=== PATIENT | female | born 1990 | race Caucasian/White ===

== ENCOUNTER 2017-12-30 23:29 | Emergency (ER) | payer OTHER ==
[2017-12-30 23:37] VITALS: BP 133/87; PULSE 83; RESP 16; TEMP 98.2
[2017-12-31] MEDS ORDERED: METOCLOPRAMIDE 5 MG/ML 2 ML VIAL IVP STA (00:03)
[2017-12-31] MEDS ORDERED: SODIUM CHLORIDE 0.9% 1,000 ML IV STA (00:03)
[2017-12-31] MEDS ORDERED: diphenhydrAMINE 50 MG/ML 1 ML VIAL IVP STA (00:03)
--- NOTE | 2017-12-31 00:08 | ED ---
Nausea/Vomiting/Diarrhea HPI - General Chief complaint: Nausea/Vomiting/Diarrhea Stated complaint: Vomiting, hands/feet numbness Time Seen by Provider: 12/30/17 23:53 Source: patient, RN notes reviewed Mode of arrival: ambulatory Limitations: no limitations - History of Present Illness Initial comments: This is a 27-year-old female presents to the emergency department with chief complaint of vomiting. Patient states that she has been unable to keep anything down since last night. She states that she has not eaten anything today. She states that she is currently 2 months but does not plan on keeping the baby. She states that she has an appointment with an clinic on Monday. She denies any abdominal pain or vaginal bleeding. She denies fevers or chills, diarrhea or constipation. Patient states that throughout the day today she had intermittent episodes of feeling like her hands and feet went numb. Patient denies any significant past medical history. - Related Data Home Medications Medication Instructions Recorded Confirmed No Known Home Medications 06/22/15 02/14/16 Allergies Allergy/AdvReac Type Severity Reaction Status Date / Time No Known Allergies Allergy Verified 12/30/17 23:38 Review of Systems ROS Statement: Those systems with pertinent positive or pertinent negative responses have been documented in the HPI. ROS Other: All systems not noted in ROS Statement are negative. Past Medical History Additional Past Medical History / Comment(s): ovarian cysts History of Any Multi-Drug Resistant Organisms: None Reported Past Surgical History: No Surgical Hx Reported Additional Past Surgical History / Comment(s): D & C Additional Past Anesthesia/Blood Transfusion Reaction / Comment(s): NEVER HAD A BLOOD TRANSFUSION Past Psychological History: No Psychological Hx Reported Smoking Status: Never smoker Past Alcohol Use History: Occasional Past Drug Use History: None Reported - Past Family History Father History Unknown: Yes Family Medical History: Coronary Artery Disease (CAD), Hypertension, Myocardial Infarction ([place]) Mother History Unknown: Yes Family Medical History: Liver Disease Additional Family Medical History / Comment(s): 'liver problems from alcohol" General Exam - General Exam Comments Initial Comments: General: Awake and alert, well-developed; in no apparent distress. HEENT: Head atraumatic, normocephalic. Pupils are equal, round and reactive to light. Extraocular movements intact. Oropharynx moist without erythema or exudate. Neck: Supple. Normal ROM. Cardiovascular: Regular rate and rhythm. No murmurs, rubs or gallops. Chest symmetrical. Respiratory: Lungs clear to auscultation bilaterally. No wheezes, rales or rhonchi. Normal respiratory effort with no use of accessory muscles. Abdomen: Soft, non-tender, non-distended. No rigidity, rebound or guarding. Normal bowel sounds in all 4 quadrants. Musculoskeletal: Normal ROM, no tenderness bilateral upper and lower extremities. Ambulating normally. Skin: [place], warm and dry without rashes or lesions. Neurological: Alert and oriented x3. CN II-XII grossly intact. Speech is fluent and answers are appropriate. No focal neuro deficits. Psychiatric: Normal mood and affect. No overt signs of depression or anxiety noted. Limitations: no limitations Course Vital Signs 12/30/17 23:35 Temperature 98.2 F Pulse Rate 83 Respiratory 16 Rate Blood Pressure 133/87 O2 Sat by Pulse 96 Oximetry Medical Decision Making - Medical Decision Making This is a 27-year-old female who presents to the emergency department with chief complaint of vomiting. Patient states that she is 2 months . Denies any abdominal pain or vaginal bleeding. He states that she has been vomiting since yesterday. States that she does plan on getting an and has an of appointment scheduled for Monday. Patient denies any fevers or chills. CBC and CMP were unremarkable. Patient was unable to provide a urine sample. After receiving a fluid bolus and antiemetics, patient states that she is feeling better. She states that she wants to be discharged home. Vital signs are stable and patient is in no acute distress. She will be discharged home at this time. All questions answered. - Lab Data Result diagrams: 12/31/17 00:18 12/31/17 00:18 Lab Results 12/31/17 12/31/17 Range/Units 00:18 00:18 WBC 6.2 (3.8-10.6) k/uL RBC 4.61 (3.80-5.40) m/uL Hgb 15.0 (11.4-16.0) gm/dL Hct 43.3 (34.0-46.0) % MCV 93.9 (80.0-100.0) fL MCH 32.6 (25.0-35.0) pg MCHC 34.7 (31.0-37.0) g/dL RDW 14.6 (11.5-15.5) % Plt Count 266 (150-450) k/uL Neutrophils % 79 % Lymphocytes % 14 % Monocytes % 5 % Eosinophils % 1 % Basophils % 1 % Neutrophils # 4.9 (1.3-7.7) k/uL Lymphocytes # 0.9 L (1.0-4.8) k/uL Monocytes # 0.3 (0-1.0) k/uL Eosinophils # 0.0 (0-0.7) k/uL Basophils # 0.0 (0-0.2) k/uL Sodium 138 (137-145) mmol/L Potassium 3.8 (3.5-5.1) mmol/L Chloride 96 L (98-107) mmol/L Carbon Dioxide 25 (22-30) mmol/L Anion Gap 17 mmol/L BUN 11 (7-17) mg/dL Creatinine 0.50 L (0.52-1.04) mg/dL Est GFR (CKD-EPI)AfAm >90 (>60 ml/min/1.73 sqM) Est GFR (CKD-EPI)NonAf >90 (>60 ml/min/1.73 sqM) Glucose 81 (74-99) mg/dL Calcium 9.7 (8.4-10.2) mg/dL Total Bilirubin 0.9 (0.2-1.3) mg/dL AST 56 H (14-36) U/L ALT 52 (9-52) U/L Alkaline Phosphatase 78 (38-126) U/L Total Protein 7.8 (6.3-8.2) g/dL Albumin 4.8 (3.5-5.0) g/dL Disposition Clinical Impression: Nausea and vomiting during Disposition: HOME SELF-CARE Condition: Good Instructions: Nausea and Vomiting in (ED) Additional Instructions: Please follow up with primary care provider within 1-2 days. Return to emergency department if symptoms should worsen or any concerns arise. Is patient prescribed a controlled substance at d/c from ED?: No Referrals: None,Stated [Primary Care Provider] - 1-2 days Time of Disposition: 01:36
[2017-12-31 00:28] LABS: Basophils % (A) 1 %; Eosinophils % (A) 1 %; HCT 43.3 % (34.0-46.0); Lymphocytes # (A) 0.9 k/uL (1.0-4.8); Lymphocytes % (A) 14 %; MCH 32.6 pg (25.0-35.0); MCHC 34.7 g/dL (31.0-37.0); MCV 93.9 fL (80.0-100.0); Monocytes # (A) 0.3 k/uL (0-1.0); Monocytes % (A) 5 %; Neutrophils # (A) 4.9 k/uL (1.3-7.7); Neutrophils % (A) 79 %; Platelet Count 266 k/uL (150-450); RBC 4.61 m/uL (3.80-5.40); RDW 14.6 % (11.5-15.5); WBC 6.2 k/uL (3.8-10.6)
[2017-12-31 00:38] LABS: ALT 52 U/L (9-52); AST 56 U/L (14-36); Albumin 4.8 g/dL (3.5-5.0); Alkaline Phosphatase 78 U/L (38-126); Anion Gap 17 mmol/L; Blood Urea Nitrogen 11 mg/dL (7-17); Calcium 9.7 mg/dL (8.4-10.2); Carbon Dioxide 25 mmol/L (22-30); Chloride 96 mmol/L (98-107); Glucose 81 mg/dL (74-99); Potassium 3.8 mmol/L (3.5-5.1); Sodium 138 mmol/L (137-145); Total Bilirubin 0.9 mg/dL (0.2-1.3); Total Protein 7.8 g/dL (6.3-8.2)
== END 2017-12-31 02:23 | disposition home or self-care (01) ==
LOC: EC 23:29
DX: O21.9 Vomiting of pregnancy, unspecified (principal); Z3A.08 8 weeks gestation of pregnancy
CPT/HCPCS: 36415; 80053; 85025; 99284; 96374; 96375; 96361; J1200; J2765

== ENCOUNTER 2018-05-14 10:38 | Inpatient (IN) | payer OTHER ==
[2018-05-14] MEDS ORDERED: SODIUM CHLORIDE 0.9% 2,000 ML IV STA (11:32)
[2018-05-14] MEDS ORDERED: KETOROLAC 30 MG/ML 1 ML VIAL IVP STA (11:32)
[2018-05-14] MEDS ORDERED: ONDANSETRON ODT 8 MG TAB.RAPDIS PO STA (11:32)
--- NOTE | 2018-05-14 11:36 | ED ---
General Adult HPI <René Payan - Last Filed: 05/14/18 15:36> - General Source: patient, RN notes reviewed Mode of arrival: ambulatory Limitations: no limitations <Chidi Pang - Last Filed: 05/14/18 15:52> - General Chief complaint: Abdominal Pain Stated complaint: back pain Time Seen by Provider: 05/14/18 11:17 - History of Present Illness Initial comments: 27-year-old female presents to the emergency department for a chief complaint of right flank pain x 3 days. Patient states she has had a kidney infection in the past and this feels similar. She denies urinary symptoms such as urinary frequency, urgency, or dysuria. However she does admit to suprapubic pain and pressure. Patient denies a history of kidney stones. Patient denies noticing any blood in the urine. Patient states she felt febrile yesterday but did not check her temperature. Patient admits to nausea and vomiting. She states she has been vomiting multiple times per day. She states she has not been able to keep down much fluid and is urinating less frequently than normal. Patient has no other complaints at this time including shortness of breath, chest pain, headache, or visual changes. (Chidi Pang) - Related Data Home Medications Medication Instructions Recorded Confirmed Naproxen Sodium [Aleve] 660 mg PO DAILY PRN 05/14/18 05/14/18 Norgestimate-Ethinyl Estradiol 1 tab PO DAILY 05/14/18 05/14/18 [Sprintec 28 Day Tablet] Previous Rx's Medication Instructions Recorded Cephalexin [Keflex] 500 mg PO Q6H 14 Days cap 05/14/18 Ondansetron [Zofran ODT] 4 mg PO Q8HR PRN #15 tab 05/14/18 Allergies Allergy/AdvReac Type Severity Reaction Status Date / Time No Known Allergies Allergy Verified 05/14/18 11:16 Review of Systems ROS Other: All systems not noted in ROS Statement are negative. <René Payan - Last Filed: 05/14/18 15:36> ROS Other: All systems not noted in ROS Statement are negative. <Chidi Pang - Last Filed: 05/14/18 15:52> ROS Statement: Those systems with pertinent positive or pertinent negative responses have been documented in the HPI. Past Medical History Additional Past Medical History / Comment(s): ovarian cysts, kidney infection, uti History of Any Multi-Drug Resistant Organisms: None Reported Past Surgical History: No Surgical Hx Reported Additional Past Surgical History / Comment(s): D & C Additional Past Anesthesia/Blood Transfusion Reaction / Comment(s): NEVER HAD A BLOOD TRANSFUSION Past Psychological History: No Psychological Hx Reported Smoking Status: Never smoker Past Alcohol Use History: Occasional Past Drug Use History: None Reported - Past Family History Father History Unknown: Yes Family Medical History: Coronary Artery Disease (CAD), Hypertension, Myocardial Infarction ([place]) Mother History Unknown: Yes Family Medical History: Liver Disease Additional Family Medical History / Comment(s): 'liver problems from alcohol" <Chidi Pang - Last Filed: 05/14/18 15:52> General Exam Limitations: no limitations General appearance: alert, in no apparent distress Head exam: Present: atraumatic, normocephalic, normal inspection Eye exam: Present: normal appearance, PERRL, EOMI. Absent: scleral icterus, conjunctival injection, periorbital swelling ENT exam: Present: normal exam, mucous membranes moist Neck exam: Present: normal inspection, full ROM. Absent: tenderness, meningismus, lymphadenopathy Respiratory exam: Present: normal lung sounds bilaterally. Absent: respiratory distress, wheezes, rales, rhonchi, stridor Cardiovascular Exam: Present: regular rate, normal rhythm, normal heart sounds. Absent: systolic murmur, diastolic murmur, rubs, gallop, clicks GI/Abdominal exam: Present: soft, tenderness (Suprapubic tenderness), normal bowel sounds. Absent: distended, guarding, rebound, rigid Back exam: Present: CVA tenderness (R), CVA tenderness (L) Neurological exam: Present: alert, oriented X3, CN II-XII intact Psychiatric exam: Present: normal affect, normal mood <Chidi Pang - Last Filed: 05/14/18 15:52> Course <René Payan - Last Filed: 05/14/18 15:36> <Chidi Pang - Last Filed: 05/14/18 15:52> Vital Signs 05/14/18 05/14/18 10:53 15:26 Temperature 98.5 F 100.9 F H Pulse Rate 112 H 90 Respiratory 16 22 Rate Blood Pressure 137/90 150/96 O2 Sat by Pulse 99 100 Oximetry - Reevaluation(s) Reevaluation #1: 05/14/18 15:36 Patient now meets for sepsis criteria diagnosed at 1536. Blood cultures and lactic acid and IV antibiotics have all been ordered. Case was discussed in detail with Dr. Fernandes, who will admit for hospital call. Patient reevaluated and updated by myself, Dr. Payan. I did agree with PA Findings including DIAGNOSTIC INTERPRETATIONS AND TREATMENT PLAN. (René Payan) Medical Decision Making - Lab Data Result diagrams: 05/14/18 12:02 05/14/18 12:02 <René Payan - Last Filed: 05/14/18 15:36> - Lab Data Result diagrams: 05/14/18 12:02 05/14/18 12:02 <Chidi Pang - Last Filed: 05/14/18 15:52> - Medical Decision Making 27-year-old female presents for flank pain, vomiting, and suprapubic pain. On evaluation patient does have bilateral tenderness to both flanks. Mild suprapubic tenderness. She is well appearing on exam. She is afebrile on presentation. CBC is within normal limits and patient does not have a white count. CMP is unremarkable. Patient does have a plasma lactic acid of 2.6. Urine shows urinary tract infection, negative hCG. Patient was given Zofran and Toradol was feeling much better, ready for discharge. However on reevaluation at time of discharge patient is now febrile and is complaining of worsening pain. At this time I recommend inpatient treatment for IV antibiotics and hydration and patient agrees. (Chidi Pang) - Lab Data Lab Results 05/14/18 05/14/18 05/14/18 Range/Units 12:02 12:02 12:02 WBC 7.8 (3.8-10.6) k/uL RBC 4.56 (3.80-5.40) m/uL Hgb 15.2 (11.4-16.0) gm/dL Hct 43.9 (34.0-46.0) % MCV 96.3 (80.0-100.0) fL MCH 33.3 (25.0-35.0) pg MCHC 34.6 (31.0-37.0) g/dL RDW 13.2 (11.5-15.5) % Plt Count 147 L (150-450) k/uL Neutrophils % 87 % Lymphocytes % 6 % Monocytes % 4 % Eosinophils % 1 % Basophils % 0 % Neutrophils # 6.8 (1.3-7.7) k/uL Lymphocytes # 0.5 L (1.0-4.8) k/uL Monocytes # 0.3 (0-1.0) k/uL Eosinophils # 0.1 (0-0.7) k/uL Basophils # 0.0 (0-0.2) k/uL Sodium 139 (137-145) mmol/L Potassium 3.7 (3.5-5.1) mmol/L Chloride 96 L (98-107) mmol/L Carbon Dioxide 26 (22-30) mmol/L Anion Gap 17 mmol/L BUN 9 (7-17) mg/dL Creatinine 0.74 (0.52-1.04) mg/dL Est GFR (CKD-EPI)AfAm >90 (>60 ml/min/1.73 sqM) Est GFR (CKD-EPI)NonAf >90 (>60 ml/min/1.73 sqM) Glucose 104 H (74-99) mg/dL Plasma Lactic Acid [place] (0.7-2.0) mmol/L Calcium 9.7 (8.4-10.2) mg/dL Total Bilirubin 1.3 (0.2-1.3) mg/dL AST 120 H (14-36) U/L ALT 141 H (9-52) U/L Alkaline Phosphatase 119 (38-126) U/L Total Protein 8.5 H (6.3-8.2) g/dL Albumin 4.8 (3.5-5.0) g/dL Amylase 43 (30-110) U/L Lipase 68 (23-300) U/L Urine Color Urine Appearance (Clear) Urine pH (5.0-8.0) Ur Specific [place] (1.001-1.035) Urine Protein (Negative) Urine Glucose (UA) (Negative) Urine Ketones (Negative) Urine Blood (Negative) Urine Nitrite (Negative) Urine Bilirubin (Negative) Urine Urobilinogen (<2.0) mg/dL Ur Leukocyte Esterase (Negative) Urine RBC (0-5) /hpf Urine WBC (0-5) /hpf Urine WBC Clumps (None) /hpf Ur Squamous Epith Cells (0-4) /hpf Urine Bacteria (None) /hpf Urine Mucus (None) /hpf Urine HCG, Qual Not Detected (Not Detectd) 05/14/18 05/14/18 Range/Units 12:02 12:02 WBC (3.8-10.6) k/uL RBC (3.80-5.40) m/uL Hgb (11.4-16.0) gm/dL Hct (34.0-46.0) % MCV (80.0-100.0) fL MCH (25.0-35.0) pg MCHC (31.0-37.0) g/dL RDW (11.5-15.5) % Plt Count (150-450) k/uL Neutrophils % % Lymphocytes % % Monocytes % % Eosinophils % % Basophils % % Neutrophils # (1.3-7.7) k/uL Lymphocytes # (1.0-4.8) k/uL Monocytes # (0-1.0) k/uL Eosinophils # (0-0.7) k/uL Basophils # (0-0.2) k/uL Sodium (137-145) mmol/L Potassium (3.5-5.1) mmol/L Chloride (98-107) mmol/L Carbon Dioxide (22-30) mmol/L Anion Gap mmol/L BUN (7-17) mg/dL Creatinine (0.52-1.04) mg/dL Est GFR (CKD-EPI)AfAm (>60 ml/min/1.73 sqM) Est GFR (CKD-EPI)NonAf (>60 ml/min/1.73 sqM) Glucose (74-99) mg/dL Plasma Lactic Acid [place] 2.6 H* (0.7-2.0) mmol/L Calcium (8.4-10.2) mg/dL Total Bilirubin (0.2-1.3) mg/dL AST (14-36) U/L ALT (9-52) U/L Alkaline Phosphatase (38-126) U/L Total Protein (6.3-8.2) g/dL Albumin (3.5-5.0) g/dL Amylase (30-110) U/L Lipase (23-300) U/L Urine Color Yellow Urine Appearance Turbid H (Clear) Urine pH 6.5 (5.0-8.0) Ur Specific [place] 1.016 (1.001-1.035) Urine Protein 2+ H (Negative) Urine Glucose (UA) Negative (Negative) Urine Ketones Negative (Negative) Urine Blood Moderate H (Negative) Urine Nitrite Negative (Negative) Urine Bilirubin Negative (Negative) Urine Urobilinogen 3.0 (<2.0) mg/dL Ur Leukocyte Esterase Large H (Negative) Urine RBC 43 H (0-5) /hpf Urine WBC >182 H (0-5) /hpf Urine WBC Clumps Many H (None) /hpf Ur Squamous Epith Cells 25 H (0-4) /hpf Urine Bacteria Many H (None) /hpf Urine Mucus Many H (None) /hpf Urine HCG, Qual (Not Detectd) Disposition <René Payan - Last Filed: 05/14/18 15:36> Is patient prescribed a controlled substance at d/c from ED?: No Time of Disposition: 14:47 <Chidi Pang - Last Filed: 05/14/18 15:52> Clinical Impression: Pyelonephritis Disposition: HOME SELF-CARE Condition: Good Instructions: Urinary Tract Infection in Women (ED), Kidney Infection (ED) Additional Instructions: Please take antibiotic as directed starting tomorrow. Please take Zofran for nausea. Please return to the emergency department if you have any worsening symptoms. Follow up with primary care or urology in 1-2 days. Prescriptions: Cephalexin [Keflex] 500 mg PO Q6H 14 Days cap Ondansetron [Zofran ODT] 4 mg PO Q8HR PRN #15 tab PRN Reason: Nausea Referrals: Bi Peguero MD [STAFF PHYSICIAN] - 1-2 days
[2018-05-14 12:23] LABS: Basophils % (A) 0 %; Eosinophils # (A) 0.1 k/uL (0-0.7); Eosinophils % (A) 1 %; HCT 43.9 % (34.0-46.0); HGB 15.2 gm/dL (11.4-16.0); Lymphocytes # (A) 0.5 k/uL (1.0-4.8); Lymphocytes % (A) 6 %; MCH 33.3 pg (25.0-35.0); MCHC 34.6 g/dL (31.0-37.0); MCV 96.3 fL (80.0-100.0); Mean Platelet Volume 6.8; Monocytes # (A) 0.3 k/uL (0-1.0); Monocytes % (A) 4 %; Neutrophils # (A) 6.8 k/uL (1.3-7.7); Neutrophils % (A) 87 %; Platelet Count 147 k/uL (150-450); RBC 4.56 m/uL (3.80-5.40); RDW 13.2 % (11.5-15.5); WBC 7.8 k/uL (3.8-10.6)
[2018-05-14 12:35] LABS: ALT 141 U/L (9-52); AST 120 U/L (14-36); Albumin 4.8 g/dL (3.5-5.0); Alkaline Phosphatase 119 U/L (38-126); Amylase 43 U/L (30-110); Anion Gap 17 mmol/L; Blood Urea Nitrogen 9 mg/dL (7-17); Calcium 9.7 mg/dL (8.4-10.2); Carbon Dioxide 26 mmol/L (22-30); Chloride 96 mmol/L (98-107); Glucose 104 mg/dL (74-99); Lipase 68 U/L (23-300); Potassium 3.7 mmol/L (3.5-5.1); Sodium 139 mmol/L (137-145); Total Bilirubin 1.3 mg/dL (0.2-1.3); Total Protein 8.5 g/dL (6.3-8.2)
[2018-05-14 12:39] LABS: Appearance,Urine Turbid (Clear); Bacteria,Urine Many /hpf; Bilirubin,Urine Negative (Negative); Blood,Urine Moderate (Negative); Color,Urine Yellow; Glucose,Urine (UA) Negative (Negative); Ketones,Urine Negative (Negative); Leukocyte Esterase,Urine Large (Negative); Mucus,Urine Many /hpf; Nitrite,Urine Negative (Negative); PH, Urine 6.5 (5.0-8.0); Protein,Urine 2+ (Negative); RBC,Urine 43 /hpf (0-5); Specific Gravity,Urine 1.016 (1.001-1.035); Squamous Epithelial Cell,Urine 25 /hpf (0-4); WBC,Urine >182 /hpf (0-5)
[2018-05-14] MEDS ORDERED: cefTRIAXone 2,000 MG in SODIUM CHLORIDE 0.9% 100 ML IVPB STA (12:55)
[2018-05-14] MEDS ORDERED: NALOXONE 0.4 MG/ML 1 ML VIAL IV PRN (15:39)
[2018-05-14] MEDS ORDERED: MORPHINE SULFATE 4 MG/ML SYRINGE IV PRN (15:39)
[2018-05-14] MEDS ORDERED: MORPHINE SULFATE 4 MG/ML SYRINGE IVP STA (15:39)
[2018-05-14] MEDS ORDERED: ONDANSETRON 4 MG/2 ML VIAL IVP PRN (15:39)
[2018-05-14] MEDS ORDERED: ACETAMINOPHEN TAB 500 MG TAB PO STA (15:58)
[2018-05-14] MEDS: SODIUM CHLORIDE 0.9% 1,000 ML IV SCH (17:21)
[2018-05-14] MEDS ORDERED: MORPHINE SULFATE 2 MG/ML SYRINGE IV PRN (18:17)
[2018-05-14] MEDS ORDERED: ACETAMINOPHEN TAB 325 MG TAB PO PRN (18:19)
--- NOTE | 2018-05-14 18:24 | P.HPIM ---
History of Present Illness H&P Date: 05/14/18 Chief Complaint: Flank pain and nausea This is a 27-year-old female with no significant past medical history presented to emergency room including patient said that she's been having back pain mostly on the right side for the past few days. Today, she became more nauseated suprapubic pain and pressure. Otherwise she denies any patient was evaluated in the emergency room was found to have a low-grade fever. The acid was elevated. Urinalysis was also positive that he was not a clean catch urine. Patient was started on IV antibiotic and was admitted to the hospital for further evaluation. She is hemodynamically stable. She is feeling better. Lactic acid level normalized after IV fluids. Review of Systems Review of system: 14 points review of systems were obtained and were negative except to what were mentioned in the HPI. Past Medical History Additional Past Medical History / Comment(s): ovarian cysts, kidney infection, uti History of Any Multi-Drug Resistant Organisms: None Reported Past Surgical History: No Surgical Hx Reported Additional Past Surgical History / Comment(s): D & C Additional Past Anesthesia/Blood Transfusion Reaction / Comment(s): NEVER HAD A BLOOD TRANSFUSION Past Psychological History: No Psychological Hx Reported Smoking Status: Never smoker Past Alcohol Use History: Occasional Past Drug Use History: None Reported - Past Family History Father History Unknown: Yes Family Medical History: Coronary Artery Disease (CAD), Hypertension, Myocardial Infarction ([place]) Mother History Unknown: Yes Family Medical History: Liver Disease Additional Family Medical History / Comment(s): 'liver problems from alcohol" Medications and Allergies Home Medications Medication Instructions Recorded Confirmed Type Cephalexin [Keflex] 500 mg PO Q6H 14 Days cap 05/14/18 Rx Naproxen Sodium [Aleve] 660 mg PO DAILY PRN 05/14/18 05/14/18 History Norgestimate-Ethinyl Estradiol 1 tab PO DAILY 05/14/18 05/14/18 History [Sprintec 28 Day Tablet] Ondansetron [Zofran ODT] 4 mg PO Q8HR PRN #15 tab 05/14/18 Rx Allergies Allergy/AdvReac Type Severity Reaction Status Date / Time No Known Allergies Allergy Verified 05/14/18 11:16 Physical Exam Vitals: Vital Signs Temp Pulse Resp BP Pulse Ox 05/14/18 15:26 100.9 F H 90 22 150/96 100 11/19/18 10:53 98.5 F 112 H 16 137/90 99 Intake and Output 05/14/18 05/14/18 05/14/18 06:59 14:59 22:59 Other: Weight 66.224 kg General: The patient is awake and alert, in no distress Eye: there is normal conjunctiva bilaterally. Neck: The neck is supple, there is no JVD. Cardiovascular: Normal S1-S2, no S3-S4, no murmurs. Respiratory: Lungs clear to auscultation bilaterally Gastrointestinal: Abdomen is soft, nontender Musculoskeletal: There is no pedal edema. Patient is having bilateral CVA tenderness worse on the right Neurological:. Speech is normal. Skin: Skin is warm and dry Results CBC & Chem 7: 05/14/18 12:02 05/14/18 12:02 Labs: Abnormal Lab Results - Last 24 Hours (Table) 05/14/18 05/14/18 05/14/18 Range/Units 12:02 12:02 12:02 Plt Count 147 L (150-450) k/uL Lymphocytes # 0.5 L (1.0-4.8) k/uL Chloride 96 L (98-107) mmol/L Glucose 104 H (74-99) mg/dL Plasma Lactic Acid [place] 2.6 H* (0.7-2.0) mmol/L AST 120 H (14-36) U/L ALT 141 H (9-52) U/L Total Protein 8.5 H (6.3-8.2) g/dL Urine Appearance (Clear) Urine Protein (Negative) Urine Blood (Negative) Ur Leukocyte Esterase (Negative) Urine RBC (0-5) /hpf Urine WBC (0-5) /hpf Urine WBC Clumps (None) /hpf Ur Squamous Epith Cells (0-4) /hpf Urine Bacteria (None) /hpf Urine Mucus (None) /hpf 05/14/18 Range/Units 12:02 Plt Count (150-450) k/uL Lymphocytes # (1.0-4.8) k/uL Chloride (98-107) mmol/L Glucose (74-99) mg/dL Plasma Lactic Acid [place] (0.7-2.0) mmol/L AST (14-36) U/L ALT (9-52) U/L Total Protein (6.3-8.2) g/dL Urine Appearance Turbid H (Clear) Urine Protein 2+ H (Negative) Urine Blood Moderate H (Negative) Ur Leukocyte Esterase Large H (Negative) Urine RBC 43 H (0-5) /hpf Urine WBC >182 H (0-5) /hpf Urine WBC Clumps Many H (None) /hpf Ur Squamous Epith Cells 25 H (0-4) /hpf Urine Bacteria Many H (None) /hpf Urine Mucus Many H (None) /hpf Microbiology - Last 24 Hours (Table) 05/14/18 12:02 Urine Culture - Preliminary Urine,Voided Assessment and Plan Assessment: 1. Suspected pyelonephritis, we'll continue broad spectrum antibiotic. I will change antibiotic to Levaquin as it has better penetration to the kidneys. Patient received IV ceftriaxone. We'll continue IV fluid hydration. Awaiting urine and blood culture. I will order repeat urinalysis as her initial urine was not clean catch. Kidney ultrasound ordered for further evaluation Continue supportive care otherwise. Repeat lab work in the morning. 2. Mild transaminitis, Etiology unclear. We will repeat in the morning. If he is not improving we'll consider acute viral hepatitis screen. 3. Sepsis with septic shock, continue with antibiotic. Lactic acid cleared with IV fluids. We will continue IV fluids for now. Awaiting blood and urine culture
[2018-05-14] MEDS ORDERED: LEVOFLOXACIN 750MG-D5W PMX 750 MG in DEXTROSE/WATER 1 150ML.BAG IVPB SCH (19:00)
[2018-05-14 19:44] VITALS: BMI 26.6
[2018-05-14] MEDS ORDERED: LORazepam 2 MG/ML INJ IV PRN ×2 (20:23)
[2018-05-14] MEDS ORDERED: THIAMINE 100 MG/ML 2 ML VIAL IM STA (20:26)
[2018-05-14] MEDS: LORazepam 2 MG/ML INJ IV PRN (22:21)
[2018-05-14 23:22] LABS: Appearance,Urine Cloudy (Clear); Bacteria,Urine Rare /hpf; Bilirubin,Urine Negative (Negative); Blood,Urine Small (Negative); Color,Urine Yellow; Glucose,Urine (UA) Negative (Negative); Ketones,Urine 2+ (Negative); Leukocyte Esterase,Urine Large (Negative); Mucus,Urine Occasional /hpf; Nitrite,Urine Negative (Negative); PH, Urine 6.5 (5.0-8.0); Protein,Urine 1+ (Negative); RBC,Urine 6 /hpf (0-5); Specific Gravity,Urine 1.013 (1.001-1.035); Squamous Epithelial Cell,Urine 4 /hpf (0-4)
[2018-05-15] MEDS: SODIUM CHLORIDE 0.9% 1,000 ML IV SCH ×2 (01:00→09:56)
[2018-05-15 08:36] LABS: Basophils % (A) 0 %; Eosinophils # (A) 0.1 k/uL (0-0.7); Eosinophils % (A) 1 %; HCT 36.8 % (34.0-46.0); HGB 12.6 gm/dL (11.4-16.0); Lymphocytes # (A) 0.9 k/uL (1.0-4.8); Lymphocytes % (A) 12 %; MCH 33.5 pg (25.0-35.0); MCHC 34.2 g/dL (31.0-37.0); MCV 97.9 fL (80.0-100.0); Mean Platelet Volume 6.8; Monocytes # (A) 0.3 k/uL (0-1.0); Monocytes % (A) 4 %; Neutrophils # (A) 5.8 k/uL (1.3-7.7); Neutrophils % (A) 81 %; Platelet Count 109 k/uL (150-450); RBC 3.76 m/uL (3.80-5.40); RDW 13.4 % (11.5-15.5); WBC 7.2 k/uL (3.8-10.6)
[2018-05-15 08:52] LABS: ALT 87 U/L (9-52); AST 67 U/L (14-36); Albumin 3.3 g/dL (3.5-5.0); Alkaline Phosphatase 79 U/L (38-126); Anion Gap 11 mmol/L; Blood Urea Nitrogen 7 mg/dL (7-17); Calcium 8.1 mg/dL (8.4-10.2); Carbon Dioxide 24 mmol/L (22-30); Chloride 101 mmol/L (98-107); Glucose 81 mg/dL (74-99); Potassium 3.4 mmol/L (3.5-5.1); Sodium 136 mmol/L (137-145); Total Bilirubin 1.1 mg/dL (0.2-1.3)
--- NOTE | 2018-05-15 09:32 | P.PN ---
Subjective Progress Note Date: 05/15/18 Principal diagnosis: Urosepsis Patient is feeling better today. No documented fever since last night. Objective - Vital Signs Vital signs: Vital Signs Temp 98.5 F 05/15/18 05:43 Pulse 96 05/15/18 05:43 Resp 16 05/15/18 05:43 BP 129/90 05/15/18 05:43 Pulse Ox 99 05/15/18 05:43 Intake & Output 05/14/18 05/15/18 05/15/18 18:59 06:59 18:59 Intake Total 1320 Balance 1320 Weight 66.224 kg 66.224 kg Intake: Intake, IV Titration 1320 Amount Sodium Chloride 0.9% 1, 1320 000 ml @ 120 mls/hr IV . Q8H20M [facility] Rx#:[id number] Other: Voiding Method Toilet Toilet - Exam General: The patient is awake and alert, in no distress Eye: there is normal conjunctiva bilaterally. Neck: The neck is supple, there is no JVD. Cardiovascular: Normal S1-S2, no S3-S4, no murmurs. Respiratory: Lungs clear to auscultation bilaterally Gastrointestinal: Abdomen is soft, nontender Musculoskeletal: There is no pedal edema. Neurological:. Speech is normal. Skin: Skin is warm and dry - Labs CBC & Chem 7: 05/15/18 07:46 05/15/18 07:46 Labs: Abnormal Lab Results - Last 24 Hours (Table) 05/14/18 05/14/18 05/14/18 Range/Units 12:02 12:02 12:02 RBC (3.80-5.40) m/uL Plt Count 147 L (150-450) k/uL Lymphocytes # 0.5 L (1.0-4.8) k/uL Sodium (137-145) mmol/L Potassium (3.5-5.1) mmol/L Chloride 96 L (98-107) mmol/L Glucose 104 H (74-99) mg/dL Plasma Lactic Acid Lyndon 2.6 H* (0.7-2.0) mmol/L Calcium (8.4-10.2) mg/dL AST 120 H (14-36) U/L ALT 141 H (9-52) U/L Total Protein 8.5 H (6.3-8.2) g/dL Albumin (3.5-5.0) g/dL Urine Appearance (Clear) Urine Protein (Negative) Urine Ketones (Negative) Urine Blood (Negative) Ur Leukocyte Esterase (Negative) Urine RBC (0-5) /hpf Urine WBC (0-5) /hpf Urine WBC Clumps (None) /hpf Ur Squamous Epith Cells (0-4) /hpf Urine Bacteria (None) /hpf Urine Mucus (None) /hpf 05/14/18 05/14/18 05/15/18 Range/Units 12:02 23:00 07:46 RBC 3.76 L (3.80-5.40) m/uL Plt Count 109 L (150-450) k/uL Lymphocytes # 0.9 L (1.0-4.8) k/uL Sodium (137-145) mmol/L Potassium (3.5-5.1) mmol/L Chloride (98-107) mmol/L Glucose (74-99) mg/dL Plasma Lactic Acid Lyndon (0.7-2.0) mmol/L Calcium (8.4-10.2) mg/dL AST (14-36) U/L ALT (9-52) U/L Total Protein (6.3-8.2) g/dL Albumin (3.5-5.0) g/dL Urine Appearance Turbid H Cloudy H (Clear) Urine Protein 2+ H 1+ H (Negative) Urine Ketones 2+ H (Negative) Urine Blood Moderate H Small H (Negative) Ur Leukocyte Esterase Large H Large H (Negative) Urine RBC 43 H 6 H (0-5) /hpf Urine WBC >182 H >182 H (0-5) /hpf Urine WBC Clumps Many H Rare H (None) /hpf Ur Squamous Epith Cells 25 H (0-4) /hpf Urine Bacteria Many H Rare H (None) /hpf Urine Mucus Many H Occasional H (None) /hpf 05/15/18 Range/Units 07:46 RBC (3.80-5.40) m/uL Plt Count (150-450) k/uL Lymphocytes # (1.0-4.8) k/uL Sodium 136 L (137-145) mmol/L Potassium 3.4 L (3.5-5.1) mmol/L Chloride (98-107) mmol/L Glucose (74-99) mg/dL Plasma Lactic Acid Lyndon (0.7-2.0) mmol/L Calcium 8.1 L (8.4-10.2) mg/dL AST 67 H (14-36) U/L ALT 87 H (9-52) U/L Total Protein 6.0 L (6.3-8.2) g/dL Albumin 3.3 L (3.5-5.0) g/dL Urine Appearance (Clear) Urine Protein (Negative) Urine Ketones (Negative) Urine Blood (Negative) Ur Leukocyte Esterase (Negative) Urine RBC (0-5) /hpf Urine WBC (0-5) /hpf Urine WBC Clumps (None) /hpf Ur Squamous Epith Cells (0-4) /hpf Urine Bacteria (None) /hpf Urine Mucus (None) /hpf Microbiology - Last 24 Hours (Table) 05/14/18 13:47 Blood Culture - Final Blood 05/14/18 12:02 Urine Culture - Preliminary Urine,Voided Assessment and Plan Assessment: 1. Urosepsis with gram-negative rods bacteremia 2. Acute pyelonephritis 3. Alcohol induced hepatitis: Counseled extensively to stop drinking. [facility] protocol ordered 4. Sepsis without septic shock: Activity as back to normal with IV fluid hydration Today, I reviewed her medication list and lab work results. Continue IV Levaquin. Repeat blood culture ordered for today. Awaiting kidney ultrasound for further evaluation. Continue IV fluid hydration. Patient was updated about her current condition. All of her questions answered to his satisfaction.
[2018-05-15] MEDS ORDERED: POTASSIUM CHLORIDE ER 20 MEQ TAB.ER PO STA (09:41)
--- NOTE | 2018-05-15 11:58 | US ---
EXAMINATION TYPE: US kidneys/renal and bladder DATE OF EXAM: 05/15/2018 COMPARISON: NONE CLINICAL HISTORY: r/o pyelo. Right flank pain EXAM MEASUREMENTS: Right Kidney: 11.5 x 4.3 x 4.7 cm Left Kidney: 10.8 x 5.1 x 4.4 cm Right Kidney: no evidence of hydronephrosis Left Kidney: no evidence of hydronephrosis Bladder: not fully distended Bilateral Jets seen: no Incidental finding: gallstones Cortical medullary differentiation is maintained. No evident mass or pathologic calcification. No asc ites. IMPRESSION: Renal sizes as described. Bladder is not distended. Cholelithiasis.
[2018-05-15] MEDS: LORazepam 2 MG/ML INJ IV PRN (12:13)
[2018-05-15] MEDS: KETOROLAC 30 MG/ML 1 ML VIAL IVP PRN ×2 (12:13→17:26)
[2018-05-15] MEDS ORDERED: LEVOFLOXACIN 750 MG TAB PO SCH (18:00)
[2018-05-16] MEDS: KETOROLAC 30 MG/ML 1 ML VIAL IVP PRN ×3 (04:21→22:18)
[2018-05-16] MEDS: SODIUM CHLORIDE 0.9% 1,000 ML IV SCH (05:02)
[2018-05-16 05:25] VITALS: RESP 16
--- NOTE | 2018-05-16 09:49 | P.PN ---
Subjective Progress Note Date: 05/16/18 Principal diagnosis: Urosepsis Patient is not feeling well today. She is still having discomfort in her right flank. She had a low-grade fever last night. Unfortunately, her antibiotic was switched from IV as ordered by me to oral by pharmacy yesterday. Repeat blood culture are still pending. Objective - Vital Signs Vital signs: Vital Signs Temp 97.6 F 05/16/18 05:00 Pulse 97 05/16/18 05:00 Resp 16 05/16/18 05:00 BP 143/87 05/16/18 05:00 Pulse Ox 98 05/16/18 05:00 Intake & Output 05/15/18 05/16/18 05/16/18 18:59 06:59 18:59 Intake Total 480 Balance 480 Weight 66.224 kg Intake: Oral 480 Other: Voiding Method Toilet Toilet # Voids 2 2 - Exam General: The patient is awake and alert, in no distress Eye: there is normal conjunctiva bilaterally. Neck: The neck is supple, there is no JVD. Cardiovascular: Normal S1-S2, no S3-S4, no murmurs. Respiratory: Lungs clear to auscultation bilaterally Gastrointestinal: Abdomen is soft, nontender Musculoskeletal: There is no pedal edema. Neurological:. Speech is normal. Skin: Skin is warm and dry - Labs CBC & Chem 7: 05/15/18 07:46 05/15/18 07:46 Labs: Microbiology - Last 24 Hours (Table) 05/14/18 13:47 Blood Culture Gram Stain - Preliminary Blood Blood Culture - Preliminary Gram Neg Bacilli 05/14/18 12:02 Urine Culture - Preliminary Urine,Voided Gram Neg Bacilli Assessment and Plan Assessment: 1. Urosepsis with gram-negative rods bacteremia 2. Acute pyelonephritis: Ultrasound of the kidney showed no significant findings 3. Alcohol induced hepatitis: Counseled extensively to stop drinking. [facility] protocol ordered 4. Sepsis without septic shock: Lactic acid back to normal with IV fluid hydration Today, I reviewed her medication list and lab work results. I had discussed with the pharmacist on the phone the importance of continue IV antibiotic for now given bacteremia. I directed him not to change my orders as entered in the computer and keep IV Levaquin for now. Patient should receive at least 3 doses of IV antibiotic Otherwise we will continue supportive care. Discontinue IV fluids. Awaiting repeat blood culture from yesterday. Possible discharge home tomorrow Patient was updated about her current condition. All of her questions answered to his satisfaction.
[2018-05-16 10:27] LABS: ALT 116 U/L (9-52); AST 148 U/L (14-36); Albumin 3.2 g/dL (3.5-5.0); Alkaline Phosphatase 71 U/L (38-126); Anion Gap 9 mmol/L; Blood Urea Nitrogen 7 mg/dL (7-17); Calcium 8.6 mg/dL (8.4-10.2); Carbon Dioxide 25 mmol/L (22-30); Chloride 102 mmol/L (98-107); Glucose 86 mg/dL (74-99); Potassium 4.2 mmol/L (3.5-5.1); Sodium 136 mmol/L (137-145); Total Bilirubin 0.5 mg/dL (0.2-1.3)
[2018-05-16 10:29] LABS: Basophils % (A) 1 %; Eosinophils % (A) 1 %; HCT 40.2 % (34.0-46.0); HGB 13.4 gm/dL (11.4-16.0); Lymphocytes # (A) 0.7 k/uL (1.0-4.8); Lymphocytes % (A) 19 %; MCH 32.8 pg (25.0-35.0); MCHC 33.4 g/dL (31.0-37.0); MCV 98.2 fL (80.0-100.0); Mean Platelet Volume 7.1; Monocytes # (A) 0.2 k/uL (0-1.0); Monocytes % (A) 5 %; Neutrophils # (A) 2.4 k/uL (1.3-7.7); Neutrophils % (A) 72 %; Platelet Count 109 k/uL (150-450); RBC 4.09 m/uL (3.80-5.40); RDW 13.4 % (11.5-15.5); WBC 3.4 k/uL (3.8-10.6)
[2018-05-16] MEDS: LORazepam 2 MG/ML INJ IV PRN (12:09)
[2018-05-16] MEDS ORDERED: MELATONIN 5 MG TABLET PO PRN (14:20)
[2018-05-16] MEDS ORDERED: LEVOFLOXACIN 750MG-D5W PMX 750 MG in DEXTROSE/WATER 1 150ML.BAG IVPB SCH (18:00)
[2018-05-16 23:17] VITALS: PULSE 94
[2018-05-17] MEDS: LORazepam 2 MG/ML INJ IV PRN (03:27)
[2018-05-17 05:49] VITALS: BP 117/82; TEMP 98.4
[2018-05-17 07:55] LABS: HCT 43.5 % (34.0-46.0); HGB 14.2 gm/dL (11.4-16.0); MCH 32.1 pg (25.0-35.0); MCHC 32.6 g/dL (31.0-37.0); MCV 98.5 fL (80.0-100.0); Mean Platelet Volume 7.2; Platelet Count 147 k/uL (150-450); RBC 4.41 m/uL (3.80-5.40); RDW 13.6 % (11.5-15.5); WBC 3.6 k/uL (3.8-10.6)
[2018-05-17 08:02] LABS: ALT 102 U/L (9-52); AST 98 U/L (14-36); Albumin 3.5 g/dL (3.5-5.0); Alkaline Phosphatase 79 U/L (38-126); Anion Gap 10 mmol/L; Blood Urea Nitrogen 10 mg/dL (7-17); Calcium 8.7 mg/dL (8.4-10.2); Carbon Dioxide 26 mmol/L (22-30); Chloride 103 mmol/L (98-107); Glucose 104 mg/dL (74-99); Potassium 4.2 mmol/L (3.5-5.1); Sodium 139 mmol/L (137-145); Total Bilirubin 0.4 mg/dL (0.2-1.3); Total Protein 6.3 g/dL (6.3-8.2)
[2018-05-17] MEDS: KETOROLAC 30 MG/ML 1 ML VIAL IVP PRN (08:53)
[2018-05-17 09:00] LABS: Eosinophils # (M) 0.14 k/uL (0-0.7); Neutrophils # (M) 1.76 k/uL (1.3-7.7); Neutrophils % (M) 49 %; Nucleated Red Blood Cells 0 /100 WBC (0-0); Total Cells Counted 100
--- NOTE | 2018-05-17 11:30 | P.DS ---
Providers Date of admission: 05/15/18 09:53 Expected date of discharge: 05/17/18 Attending physician: Ivone Ceron Primary care physician: Stated None Hospital Course: This is a 27-year-old female who presented to the emergency room with back pain and right flank pain and was found to be septic with underlying pyelonephritis and urosepsis. Patient was admitted to the hospital and was treated for the below mentioned medical problems. 1. Urosepsis with E. coli bacteremia, this was batista susceptible. Patient received 3 days of IV Levaquin. Her overall condition improved significantly. We'll finish 7 days course of Levaquin at home. 2. Acute pyelonephritis: Ultrasound of the kidney showed no significant findings 3. Alcohol induced hepatitis: Counseled extensively to stop drinking. [facility] protocol ordered 4. Sepsis without septic shock: Lactic acid back to normal with IV fluid hydration Patient will be discharged home in a stable condition. Patient Condition at Discharge: Good Plan - Discharge Summary Discharge Rx Participant: Yes New Discharge Prescriptions: New Levofloxacin [Levaquin] 500 mg PO DAILY #7 tab Continue Naproxen Sodium [Aleve] 660 mg PO DAILY PRN PRN Reason: Pain Norgestimate-Ethinyl Estradiol [Sprintec 28 Day Tablet] 1 tab PO DAILY Discharge Medication List Naproxen Sodium [Aleve] 660 mg PO DAILY PRN 05/14/18 [History] Norgestimate-Ethinyl Estradiol [Sprintec 28 Day Tablet] 1 tab PO DAILY 05/14/18 [History] Levofloxacin [Levaquin] 500 mg PO DAILY #7 tab 05/17/18 [Rx] Patient Instructions/Handouts: Urinary Tract Infection in Women (ED), Kidney Infection (ED) Activity/Diet/Wound Care/Special Instructions: Please take antibiotic as directed starting tomorrow. Please take Zofran for nausea. Please return to the emergency department if you have any worsening symptoms. Follow up with primary care or urology in 1-2 days. Discharge Disposition: HOME SELF-CARE
== END 2018-05-17 13:17 | disposition home or self-care (01) | DRG 872 ==
LOC: EC 10:38 → 3NMEDONC 17:36 → OBSVTOIN 05-15 09:53
PROVIDERS: ADMIT Internal Medicine; ATTEND Internal Medicine
DX: A41.51 Sepsis due to Escherichia coli [E. coli] (principal); N10 Acute pyelonephritis; K70.10 Alcoholic hepatitis without ascites; Z79.3 Long term (current) use of hormonal contraceptives; Z87.440 Personal history of urinary (tract) infections; Z71.41 Alcohol abuse counseling and surveillance of alcoholic; Z82.49 Family history of ischemic heart disease and other diseases of the circulatory system
CPT/HCPCS: 36415; 76770; 80053; 81001; 81025; 82150; 83605; 83690; 85025; 87040; 87077; 87086; 87186; 96361; 96365; 96375; 99285

== ENCOUNTER 2018-07-27 16:17 | Emergency (ER) | payer OTHER ==
[2018-07-27] MEDS ORDERED: SODIUM CHLORIDE 0.9% 2,000 ML IV STA (16:41)
[2018-07-27] MEDS ORDERED: KETOROLAC 30 MG/ML 1 ML VIAL IVP STA (16:41)
[2018-07-27] MEDS ORDERED: ONDANSETRON 4 MG/2 ML VIAL IVP STA (16:41)
[2018-07-27 18:07] LABS: ALT 41 U/L (9-52); AST 46 U/L (14-36); Alkaline Phosphatase 133 U/L (38-126); Amylase <30 U/L (30-110); Anion Gap 15 mmol/L; Blood Urea Nitrogen 20 mg/dL (7-17); Calcium 9.2 mg/dL (8.4-10.2); Carbon Dioxide 24 mmol/L (22-30); Chloride 100 mmol/L (98-107); Glucose 117 mg/dL (74-99); Lipase 34 U/L (23-300); Potassium 4.2 mmol/L (3.5-5.1); Sodium 139 mmol/L (137-145); Total Bilirubin 1.1 mg/dL (0.2-1.3); Total Protein 7.3 g/dL (6.3-8.2)
[2018-07-27 18:09] LABS: Basophils # (A) 0.1 k/uL (0-0.2); Basophils % (A) 1 %; Eosinophils # (A) 0.1 k/uL (0-0.7); Eosinophils % (A) 1 %; HCT 41.4 % (34.0-46.0); HGB 13.8 gm/dL (11.4-16.0); Lymphocytes # (A) 1.3 k/uL (1.0-4.8); Lymphocytes % (A) 10 %; MCH 32.8 pg (25.0-35.0); MCHC 33.3 g/dL (31.0-37.0); MCV 98.6 fL (80.0-100.0); Mean Platelet Volume 6.4; Monocytes # (A) 0.9 k/uL (0-1.0); Monocytes % (A) 7 %; Neutrophils # (A) 10.4 k/uL (1.3-7.7); Neutrophils % (A) 78 %; Platelet Count 299 k/uL (150-450); RDW 15.5 % (11.5-15.5); WBC 13.3 k/uL (3.8-10.6)
--- NOTE | 2018-07-27 18:20 | ED ---
Abdominal Pain HPI - General Chief Complaint: Abdominal Pain Stated Complaint: Back Pain, poss UTI Time Seen by Provider: 07/27/18 16:37 Source: patient, RN notes reviewed Mode of arrival: ambulatory Limitations: no limitations - History of Present Illness Initial Comments: 28-year-old female sent emergency Department with chief complaint of fever, abdominal and flank pain. Patient states that she has been admitted in the past for sepsis related to pyelonephritis. Patient states she feels similar. Patient does not have any current dysuria though she has left flank pain. Patient denies any vomiting but states that she is very nauseated denies any chance . Denies any vaginal bleeding, vaginal discharge, diarrhea constipation. Patient states that she's also slight cough and body aches. No recent Tylenol Motrin. - Related Data Home Medications Medication Instructions Recorded Confirmed Naproxen Sodium [Aleve] 440 mg PO Q6HR 07/27/18 07/27/18 Previous Rx's Medication Instructions Recorded Ciprofloxacin HCl [Cipro] 500 mg PO Q12HR #20 tablet 07/27/18 Allergies Allergy/AdvReac Type Severity Reaction Status Date / Time No Known Allergies Allergy Verified 07/27/18 17:20 Review of Systems ROS Statement: Those systems with pertinent positive or pertinent negative responses have been documented in the HPI. ROS Other: All systems not noted in ROS Statement are negative. Past Medical History Additional Past Medical History / Comment(s): ovarian cysts, kidney infection, uti History of Any Multi-Drug Resistant Organisms: None Reported Past Surgical History: No Surgical Hx Reported Additional Past Surgical History / Comment(s): D & C Additional Past Anesthesia/Blood Transfusion Reaction / Comment(s): NEVER HAD A BLOOD TRANSFUSION Past Psychological History: No Psychological Hx Reported Smoking Status: Never smoker Past Alcohol Use History: Occasional Past Drug Use History: None Reported - Past Family History Father History Unknown: Yes Family Medical History: Coronary Artery Disease (CAD), Hypertension, Myocardial Infarction ([place]) Mother History Unknown: Yes Family Medical History: Liver Disease Additional Family Medical History / Comment(s): 'liver problems from alcohol" General Exam Limitations: no limitations General appearance: alert, in no apparent distress Head exam: Present: atraumatic, normocephalic, normal inspection Eye exam: Present: normal appearance, PERRL, EOMI. Absent: scleral icterus, conjunctival injection, periorbital swelling ENT exam: Present: normal exam, normal oropharynx, mucous membranes moist, TM's normal bilaterally, normal external ear exam Neck exam: Present: normal inspection. Absent: tenderness, meningismus, lymphadenopathy Respiratory exam: Present: normal lung sounds bilaterally. Absent: respiratory distress, wheezes, rales, rhonchi, stridor Cardiovascular Exam: Present: normal rhythm, tachycardia, normal heart sounds. Absent: systolic murmur, diastolic murmur, rubs, gallop, clicks GI/Abdominal exam: Present: soft, tenderness (Mild suprapubic), normal bowel sounds. Absent: distended, guarding, rebound, rigid Back exam: Present: CVA tenderness (L). Absent: CVA tenderness (R) Neurological exam: Present: alert, oriented X3, CN II-XII intact Skin exam: Present: warm, dry, intact, normal color. Absent: rash Course Vital Signs 07/27/18 16:32 Temperature 98.9 F Pulse Rate 114 H Respiratory 20 Rate Blood Pressure 125/79 O2 Sat by Pulse 99 Oximetry Medical Decision Making - Medical Decision Making 28 show female presented for left flank pain. Patient has evidence of pyelonephritis. Patient is stable for discharge no signs of sepsis. Patient did have lab work, urinalysis she was given 2 L IV fluids, Rocephin will be discharged on ciprofloxacin. - Lab Data Result diagrams: 07/27/18 17:25 07/27/18 17:25 Lab Results 07/27/18 07/27/18 07/27/18 Range/Units 17:25 17:25 17:25 WBC 13.3 H (3.8-10.6) k/uL RBC 4.20 (3.80-5.40) m/uL Hgb 13.8 (11.4-16.0) gm/dL Hct 41.4 (34.0-46.0) % MCV 98.6 (80.0-100.0) fL MCH 32.8 (25.0-35.0) pg MCHC 33.3 (31.0-37.0) g/dL RDW 15.5 (11.5-15.5) % Plt Count 299 (150-450) k/uL Neutrophils % 78 % Lymphocytes % 10 % Monocytes % 7 % Eosinophils % 1 % Basophils % 1 % Neutrophils # 10.4 H (1.3-7.7) k/uL Lymphocytes # 1.3 (1.0-4.8) k/uL Monocytes # 0.9 (0-1.0) k/uL Eosinophils # 0.1 (0-0.7) k/uL Basophils # 0.1 (0-0.2) k/uL Sodium 139 (137-145) mmol/L Potassium 4.2 (3.5-5.1) mmol/L Chloride 100 (98-107) mmol/L Carbon Dioxide 24 (22-30) mmol/L Anion Gap 15 mmol/L BUN 20 H (7-17) mg/dL Creatinine 0.89 (0.52-1.04) mg/dL Est GFR (CKD-EPI)AfAm >90 (>60 ml/min/1.73 sqM) Est GFR (CKD-EPI)NonAf 90 (>60 ml/min/1.73 sqM) Glucose 117 H (74-99) mg/dL Plasma Lactic Acid Lyndon 1.7 (0.7-2.0) mmol/L Calcium 9.2 (8.4-10.2) mg/dL Total Bilirubin 1.1 (0.2-1.3) mg/dL AST 46 H (14-36) U/L ALT 41 (9-52) U/L Alkaline Phosphatase 133 H (38-126) U/L Total Protein 7.3 (6.3-8.2) g/dL Albumin 4.0 (3.5-5.0) g/dL Amylase <30 L (30-110) U/L Lipase 34 (23-300) U/L Urine Color Urine Appearance (Clear) Urine pH (5.0-8.0) Ur Specific Hubbell (1.001-1.035) Urine Protein (Negative) Urine Glucose (UA) (Negative) Urine Ketones (Negative) Urine Blood (Negative) Urine Nitrite (Negative) Urine Bilirubin (Negative) Urine Urobilinogen (<2.0) mg/dL Ur Leukocyte Esterase (Negative) Urine RBC (0-5) /hpf Urine WBC (0-5) /hpf Urine WBC Clumps (None) /hpf Ur Squamous Epith Cells (0-4) /hpf Amorphous Sediment (None) /hpf Urine Bacteria (None) /hpf Hyaline Casts (0-2) /lpf Urine Mucus (None) /hpf Urine HCG, Qual (Not Detectd) Influenza Type A RNA (Not Detectd) Influenza Type B (PCR) (Not Detectd) 07/27/18 07/27/18 07/27/18 Range/Units 17:25 19:05 19:05 WBC (3.8-10.6) k/uL RBC (3.80-5.40) m/uL Hgb (11.4-16.0) gm/dL Hct (34.0-46.0) % MCV (80.0-100.0) fL MCH (25.0-35.0) pg MCHC (31.0-37.0) g/dL RDW (11.5-15.5) % Plt Count (150-450) k/uL Neutrophils % % Lymphocytes % % Monocytes % % Eosinophils % % Basophils % % Neutrophils # (1.3-7.7) k/uL Lymphocytes # (1.0-4.8) k/uL Monocytes # (0-1.0) k/uL Eosinophils # (0-0.7) k/uL Basophils # (0-0.2) k/uL Sodium (137-145) mmol/L Potassium (3.5-5.1) mmol/L Chloride (98-107) mmol/L Carbon Dioxide (22-30) mmol/L Anion Gap mmol/L BUN (7-17) mg/dL Creatinine (0.52-1.04) mg/dL Est GFR (CKD-EPI)AfAm (>60 ml/min/1.73 sqM) Est GFR (CKD-EPI)NonAf (>60 ml/min/1.73 sqM) Glucose (74-99) mg/dL Plasma Lactic Acid Lyndon (0.7-2.0) mmol/L Calcium (8.4-10.2) mg/dL Total Bilirubin (0.2-1.3) mg/dL AST (14-36) U/L ALT (9-52) U/L Alkaline Phosphatase (38-126) U/L Total Protein (6.3-8.2) g/dL Albumin (3.5-5.0) g/dL Amylase (30-110) U/L Lipase (23-300) U/L Urine Color Yellow Urine Appearance Cloudy H (Clear) Urine pH 6.0 (5.0-8.0) Ur Specific Hubbell 1.013 (1.001-1.035) Urine Protein 1+ H (Negative) Urine Glucose (UA) Negative (Negative) Urine Ketones Negative (Negative) Urine Blood Moderate H (Negative) Urine Nitrite Positive H (Negative) Urine Bilirubin Negative (Negative) Urine Urobilinogen 3.0 (<2.0) mg/dL Ur Leukocyte Esterase Large H (Negative) Urine RBC 7 H (0-5) /hpf Urine WBC >182 H (0-5) /hpf Urine WBC Clumps Many H (None) /hpf Ur Squamous Epith Cells 50 H (0-4) /hpf Amorphous Sediment Occasional H (None) /hpf Urine Bacteria Moderate H (None) /hpf Hyaline Casts 31 H (0-2) /lpf Urine Mucus Rare H (None) /hpf Urine HCG, Qual Not Detected (Not Detectd) Influenza Type A RNA Not Detected (Not Detectd) Influenza Type B (PCR) Not Detected (Not Detectd) Disposition Clinical Impression: Pyelonephritis Disposition: HOME SELF-CARE Condition: Stable Instructions (If sedation given, give patient instructions): Kidney Infection ( ED) Additional Instructions: Please return to the Emergency Department if symptoms worsen or any other concerns. Prescriptions: Ciprofloxacin HCl [Cipro] 500 mg PO Q12HR #20 tablet Is patient prescribed a controlled substance at d/c from ED?: No Referrals: None,Stated [Primary Care Provider] - 1-2 days Time of Disposition: 19:45
[2018-07-27 19:41] LABS: Amorphous Sediment,Urine Occasional /hpf; Appearance,Urine Cloudy (Clear); Bacteria,Urine Moderate /hpf; Bilirubin,Urine Negative (Negative); Blood,Urine Moderate (Negative); Color,Urine Yellow; Glucose,Urine (UA) Negative (Negative); Hyaline Casts,Urine 31 /lpf (0-2); Ketones,Urine Negative (Negative); Leukocyte Esterase,Urine Large (Negative); Mucus,Urine Rare /hpf; Nitrite,Urine Positive (Negative); Protein,Urine 1+ (Negative); RBC,Urine 7 /hpf (0-5); Specific Gravity,Urine 1.013 (1.001-1.035); Squamous Epithelial Cell,Urine 50 /hpf (0-4)
[2018-07-27 20:00] VITALS: BP 122/80; PULSE 95; RESP 16; TEMP 99
== END 2018-07-27 20:05 | disposition home or self-care (01) ==
LOC: EC 16:17
DX: N12 Tubulo-interstitial nephritis, not specified as acute or chronic (principal); Z79.1 Long term (current) use of non-steroidal anti-inflammatories (NSAID)
CPT/HCPCS: 36415; 80053; 82150; 83605; 83690; 85025; 81001; 81025; 87086; 87077; 87186; 87502; 99284; 96365; 96375 ×2; 96361 ×2; J2405; J0696; J1885